=== PATIENT | female | born 1990 ===

== ENCOUNTER 2025-04-19 15:55 | Emergency (ER) | payer OTHER, SELFPAY ==
--- NOTE | ~2025-04-19 | CT_ITS ---
CLINICAL HISTORY: trauma, abd pain Exam: CT Abdomen and Pelvis Without IV Contrast Comparison: None Findings: The liver density is homogeneous. No liver laceration or contusion. No biliary abnormalities The spleen is normal in size. No splenic laceration or contusion. No pancreatic ductal dilatation No hydronephrosis. No renal capsular hematoma or laceration. Normal bowel caliber. No mesenteric hematoma. The appendix is normal. No free fluid/free air The abdominal aorta caliber is normal Bladder outline is smooth. The uterus is normal in size. An intrauterine device is in satisfactory position. Right ovarian 12 mm cyst is present containing thick wall No abdominal wall hematomas or contusions No fractures Impression : Right ovarian 12 mm cyst containing fat, or small teratoma with soft tissue component, consider nonurgent ultrasound for more detailed evaluation. Signs of acute trauma. This document has been electronically signed by: Justin Herrera MD on 04/19/2025 19:36:06
--- NOTE | ~2025-04-19 | XR_ITS ---
CLINICAL HISTORY: trauma, pain 4 views left wrist Comparison: None No fractures or dislocations. No significant arthritic change. No radiopaque foreign body. Impression: Normal left wrist. Normal scaphoid bone. No acute skeletal abnormality This document has been electronically signed by: Justin Herrera MD on 04/19/2025 17:17:19
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
[2025-04-19 16:21] VITALS: BP 128/80; PULSE 92; RESP 16; TEMP 36.4; O2SAT 99; BMI 35.6
[2025-04-19 17:14] LABS: MANUAL DIFF FLAG NO
[2025-04-19 17:15] LABS: Hematocrit 38.9 % (37.0-47.0); Hemoglobin 13.0 g/dl (12.0-16.0); Imm Gran Abs Auto 0.03 X10*3/uL (0.00-0.03); Imm Gran Pct Auto 0.3 % (0.0-0.4); Lymphocytes Absolute Auto 1.8 X10*3/uL (1.2-4.9); Mean Corpuscular HGB Conc 33.4 g/dl (31.0-35.0); Mean Corpuscular Hemoglobin 27.7 pg (27.0-33.0); Mean Corpuscular Volume 82.9 fL (80.0-98.0); NRBC Abs Auto 0.000 X10*3/uL (0.0-0.012); NRBC Pct Auto 0.0 /100WBC (0.0-0.2); Platelet Count 348 X10*3/uL (160-400); Red Blood Count 4.69 X10*6/uL (4.20-5.50); White Blood Count 11.3 X10*3/uL (4.8-10.8)
[2025-04-19 17:16] LABS: Appearance Urine Clear; Glucose Urine UA Negative (Negative); PH 5.5 (5.0-9.0); Specific Gravity - Urine 1.020 (1.005-1.025); UMIC TRIGGER UA YES
[2025-04-19 17:28] LABS: Alanine Aminotransferase 14 U/L (0-31); Albumin Level 4.5 g/dL (3.5-5.0); Alkaline Phosphatase 60 U/L (39-117); Anion Gap 13 (12-20); Aspartate Amino Transferase 19 U/L (5-31); Blood Urea Nitrogen 10 mg/dL (9-16); Calcium 9.5 mg/dL (8.4-10.2); Carbon Dioxide 27 mmol/L (22-29); Chloride 107 mmol/L (96-108); Creatinine Clr Calc Pharmacy 98.2; Estimated Glomerular Filt Rate > 60; Lipase 19 U/L (8-78); Potassium 4.6 mmol/L (3.3-5.1); Sodium 142 mmol/L (135-145); Total Protein 7.4 g/dL (6.5-8.0)
[2025-04-19 18:15] LABS: UPreg QC Valid YES
[2025-04-19 20:15] VITALS: BP 128/80; PULSE 92; RESP 16; TEMP 36.4; O2SAT 99
== END 2025-04-19 20:15 | disposition home or self-care (01) ==
PROVIDERS: Physician Assistant; Emergency Provider Emergency Medicine; PCP Physician Assistant Medical
DX: S69.92XA Unspecified injury of left wrist, hand and finger(s), initial encounter (principal); M79.10 Myalgia, unspecified site; M25.532 Pain in left wrist; R07.89 Other chest pain; M54.50 Low back pain, unspecified; R10.2 Pelvic and perineal pain; M25.572 Pain in left ankle and joints of left foot; V43.52XA Car driver injured in collision with other type car in traffic accident, initial encounter; Y93.9 Activity, unspecified; Y92.410 Unspecified street and highway as the place of occurrence of the external cause; Y99.8 Other external cause status
CPT/HCPCS: 36415; 73110; 74176; 80053; 81001; 81025; 83690; 85025; 99282; 99284

== ENCOUNTER → 2025-04-19 16:27 | Outpatient (BNV) | payer OTHER, SELFPAY | PROVIDERS: PCP Physician Assistant Medical; Visit Provider Radiology Diagnostic Radiology | DX: R10.9 Unspecified abdominal pain (principal); M25.532 Pain in left wrist | CPT/HCPCS: 73110; 74176 ==